=== PATIENT | male | born 1950 | race Caucasian/White ===

== ENCOUNTER 2024-06-10 07:24 | Day surgery (SDC) | payer OTHER, SELFPAY ==
[2024-05-27 13:33] VITALS: BMI 50.8
[2024-05-27 14:01] LABS: % Basophils 0.4 % (0-2); % Immature Granulocytes 0.7 % (0-0.5); % Lymphocytes 16.8 % (20.5-51.1); % Monocytes 5.1 % (1.7-9.3); Absolute Eosinophils 0.1 10^3/uL (0-0.7); Absolute Immature Granulocytes 0.1 10^3/uL (0-0.05); Absolute Lymphocytes 1.2 10^3/uL (1.2-3.4); Absolute Monocytes 0.4 10^3/uL (0.1-0.6); Absolute Neutrophils 5.5 10^3/uL (1.4-6.5); Hematocrit 34.9 % (39.0-52.0); Hemoglobin 11.2 g/dL (13.0-18.0); Mean Corp Hgb Conc. 32.1 g/dL (33.0-37.0); Mean Corpuscular Hgb 26.4 pg (27.0-31.0); Mean Corpuscular Volume 82.3 fL (80.0-94.0); Nucleated Red Blood Cells % 0 % (-); Red Blood Cell Count 4.24 10^6/uL (4.70-6.10); Red Cell Dist. Width 17.8 % (11.5-14.5); White Blood Cell Count 7.2 10^3/uL (4.8-10.8)
[2024-05-27 14:11] LABS: Mean Platelet Volume 10.2 fL (7.4-10.4); Platelet Count 75 10^3/uL (130-400)
[2024-05-27 14:14] LABS: ALT (SGPT) 37 U/L (0-50); AST (SGOT) 29 U/L (17-59); Albumin 4.1 g/dl (3.5-5.0); Alkaline Phosphatase 115 U/L (38-126); Blood Urea Nitrogen 19 mg/dl (9-20); Calcium 10.1 mg/dl (8.4-10.2); Carbon Dioxide 27 mmol/L (22-30); Chloride 100 mmol/L (98-107); Estimated Creatinine Clearance 115 ml/min; Glucose 162 mg/dl (70-99); Potassium 4.3 mmol/L (3.5-5.1); Sodium 136 mmol/L (135-145); Total Bilirubin 1.1 mg/dl (0.2-1.3); Total Protein 7.2 g/dl (6.3-8.2); eGFR > 60.00
[2024-05-28 13:19] LABS: Iron 86 ug/dl (49-181)
[2024-05-28 13:28] LABS: Percent Saturation 29 % (20-50); Total Iron Binding Capacity 289 ug/dl (261-462)
[2024-05-28 17:27] LABS: Vitamin B12 869 pg/ml (239-931)
[2024-06-10] VITALS (9 sets, daily range): BP systolic 94–115; BP diastolic 48–83; BMI 50.2
--- NOTE | 2024-06-10 07:49 | CONSULT.STRU ---
Consultation
-
Date/Time Consultation Requested: 06/10/2024
Date/Time Consultation Performed: 06/10/2024
Requesting Provider: Bruce Nicholson MD
Performing Provider: FELICIANO Goncalves
Reason for Consultation: /TAVR
Patient History
Physicians
Family Physician: Marcos Rene MD
Outpatient Telephone Directory Deliverer: Lui Claros MD
Primary Telephone Directory Deliverer: Lui Claros MD
History of Present Illness
Mr. Bright is a 74 yo obese male with a past medical history significant for , ERENDIRA, HTN, hyperlipidemia, GERD, CAD (BRANDIN), and, diastolic/systolic dysfunction. His most recent echocardiogram from 05/12/2024 is notable for EF 60-65%, aortic valve
P/M 72/51, ANTIONE 0.9, no AI, MV looks grossly normal, TV looks grossly normal. From a symptomatology standpoint, patient describes HOLLIS with the least amount of exertion, extreme fatigue sleeping most of the day, and occasional anterior substernal
chest pain without associated symptoms or radiation stating it using goes away after one hour. Discussed the pathophysiology and treatment options of aortic stenosis including sAVR and TAVR. Explained the evaluation process comprising of repeat lab
work, CT scan, dental clearance, CT surgical consult, and a heart team discussion. Prescriptions, appointments, TAVR booklet and contact information given to patient. Allowed for and answered questions from patient and son at bedside.
Past Medical History
Past Medical History: BPH, CAD, GERD, HTN, ERENDIRA, Valvular Disease (aortic stenosis) and Other (hyperlipidemia)
Past Surgical History
Past Surgical History: Orthopedic (ACL replacement) and Tonsilectomy
Dental History
[facility]--Patient will need to make an appointment
Family History
Mother: N/A
Father: N/A
Social History
Tobacco: Non-Smoker
Allergies
Allergy/AdvReac Type Severity Reaction Status Date / Time
No Known Allergies Allergy Verified 05/25/24 14:27
Home Medications
�Medication �Instructions �Recorded �Confirmed �Type
aspirin 81 mg capsule 81 mg PO DAILY 02/05/22 05/25/24 History
atorvastatin 80 mg tablet 80 mg PO HS 02/05/22 05/25/24 History
furosemide 80 mg tablet 80 mg PO BID #180 tabs 02/05/22 05/25/24 Rx
tamsulosin 0.4 mg capsule 0.8 mg PO HS 02/05/22 05/25/24 History
atenolol 50 mg tablet 50 mg PO DAILY 05/25/24 05/25/24 History
multivitamin 1 tab PO DAILY 05/25/24 05/25/24 History
spironolactone 25 mg tablet 12.5 mg PO DAILY 05/25/24 05/25/24 History
STS%
STS %: 4.82
Review of Systems
-
History Source: Patient
General: Reports Fatigue
Respiratory: Reports SOB and HOLLIS
Cardiac: Reports Chest Pain
Physical Exam
Vital Signs
Actual Weight 165 kg 05/27/24 13:33
Body Mass Index (BMI) 50.8 05/27/24 13:33
Labs
05/27/24 13:49
05/27/24 13:49
Diagnostic Studies
Procedure Type:�Isolated AVR
Perioperative Outcome Estimate %
Operative Mortality 4.82%
Morbidity & Mortality 16.7%
Stroke 0.831%
Renal Failure 4.91%
Reoperation 5.62%
Prolonged Ventilation 8.94%
Deep Sternal Wound Infection 0.184%
Long Hospital Stay (>14 days) 9.48%
Short Hospital Stay (<6 days)* 29%
ECHOCARDIOGRAM 05/12/2024
CONCLUSIONS
1. Very technically difficult study.
2. Overall normal LV function. EF 60 to 65%.
2. Normal RV function
3. Severe aortic stenosis. Peak gradient 72 mmHg. Mean gradient 51 mmHg.
Calculated valve area 0.9 cm2.
Exam
General: No Apparent Distress and Other (obese)
HEENT: Normocephalic
Neck: Trachea Midline
Respiratory: Clear
Cardiac: Murmur (III/ GUILLERMO)
GI: Soft and Non Tender
Rectal: Deferred by Provider
Skin: Warm
Neuro: Awake, Alert and Oriented
Assessment / Plan
-
Aortic stenosis
Continue TAVR evaluation
Continue aspirin
Trend creatinine (RX given)
TAVR CT scan (07/01)
CT surgical consult (07/06 MPT)
Frailty testing and KCCQ12 at consult
Dental clearance
Heart team discussion
Data Reviewed
-
Greenskeeper Supervisor: Discussed with Physician
Echo: Report Reviewed by me and Discussed with Physician
Labs: Labs Reviewed by me
Old Records: Reviewed
Total Time Spent with Patient (in minutes): 45
[2024-06-10 08:48] LABS: Glucose - Point of Care 157 mg/dl (70-99)
--- NOTE | 2024-06-10 15:45 | ITS.CL.PN ---
Chisel Mortiser Operator - Procedure Note
Procedure
Procedure Note:
CARDIAC CATHETERIZATION REPORT
Date of Procedure: 06/10/2024
Referring: Dr. Lui Claros MD
Indication: severe aortic stenosis
PROCEDURE(S)
1. right heart catheterization
2. left heart catheterization
3. coronary angiography
ACCESS
1. 6F left radial artery (closure: radial band)
2. 5F left antecubital vein (closure: manual hemostasis)
CATHETERS
1. 5F [place]
2. 6F AL1 (best for RCA)
3. 6F JL4
MODERATE SEDATION: 45 minutes of moderate sedation was utilized. An independent medical recruiter was present to assist with and help manage the patient's level of consciousness and physiologic status.
ULTRASOUND GUIDED VASCULAR ACCESS (left radial artery): Ultrasound was utilized for vascular access. The vessel was visualized under ultrasound and noted to be patent. An image of the vessel was stored permanently in the patient's medical record.
Under direct ultrasound guidance, vascular access was obtained using a modified Seldinger technique and a 6 [place] sheath was placed.
ULTRASOUND GUIDED VASCULAR ACCESS (left antecubital vein): Ultrasound was utilized for vascular access. The vessel was visualized under ultrasound and noted to be patent. An image of the vessel was stored permanently in the patient's medical record.
Under direct ultrasound guidance, vascular access was obtained using a modified Seldinger technique and a 5 [place] sheath was placed.
HEMODYNAMIC DATA
LV 173/16 (EDP 31) mmHg
AO 136/87 (mean 107) mmHg
RA 16 mmHg
RV 46/12 (EDP 19) mmHg
PA 43/23 (mean 33) mmHg
PCWP 24 mmHg
SaO2 98.3%
SvO2 57.4%
Hb 10.6 g/dL
CO/CI 5.75/2.12 L/min/m2
SVR 1265 dsc*-5
PVR 1.6 Wood units
Mean gradient (via simultaneous pressure measurement): 39.6 mmHg at HR 64, Area 0.99 cm2 (0.36 cm2 indexed to BSA), SVI 33.1 mL/m2
CORONARY ANGIOGRAPHY
Dominance: right
LM: large vessel with mild distal vessel tapering
LAD: large vessel giving rise to a moderate caliber diagonal branch. There is a focal 50% stenosis just before the diagonal takeoff and otherwise mild disease all grossly unchanged from 2021.
LCx: large vessel giving rise to a large OM1, moderate caliber OM2, and small OM3 before being totally occluded with the distal circumflex fed via robust R-L collaterals. There is a focal 50-60% stenosis of the OM1 that appears angiographically
unchanged from 202. There is otherwise diffuse mild disease in the OM1 and OM2.
RCA: moderate caliber vessel with a high anterior takeoff giving rise to a small RPDA, several small RPL branches, and suppling collaterals to the distal RCA including several small LPL branches. There is mild non-obstructive disease grossly
unchanged from 2021.
RADIATION: dose 1346 mGy; DAP 109 Gy*cm2; fluoroscopy time 18.6 min
CONCLUSIONS
1. elevated biventricular filling pressures, moderate post-capillary pulmonary hypertension, low cardiac index, and severe aortic stenosis
2. non-obstructive coronary artery disease in a right dominant system grossly unchanged from 2021
RECOMMENDATIONS
1. proceed with workup for TAVR
2. management of HFpEF
Copy to: Dr. Lui Claros MD (muffler tender); Marcos Rene DO (PCP)
Signed: Bruce Nicholson MD, PhD
== END 2024-06-10 13:45 | disposition home or self-care (01) ==
LOC: CATH 07:24
PROVIDERS: ATTENDING PHYSICIAN Student in an Organized Health Care Education/Training Program; FAMILY PHYSICIAN Family Medicine; OTHER PHYSICIAN Internal Medicine Cardiovascular Disease
DX: I35.0 Nonrheumatic aortic (valve) stenosis (principal); I25.10 Atherosclerotic heart disease of native coronary artery without angina pectoris; Z95.5 Presence of coronary angioplasty implant and graft; I11.0 Hypertensive heart disease with heart failure; I50.32 Chronic diastolic (congestive) heart failure; Z86.73 Personal history of transient ischemic attack (TIA), and cerebral infarction without residual deficits; G47.33 Obstructive sleep apnea (adult) (pediatric); D46.9 Myelodysplastic syndrome, unspecified; D69.6 Thrombocytopenia, unspecified; M19.90 Unspecified osteoarthritis, unspecified site; Z68.43 Body mass index [BMI] 50.0-59.9, adult; E78.49 Other hyperlipidemia; E66.01 Morbid (severe) obesity due to excess calories; N40.0 Benign prostatic hyperplasia without lower urinary tract symptoms; R26.2 Difficulty in walking, not elsewhere classified; Z79.82 Long term (current) use of aspirin; Z79.899 Other long term (current) drug therapy; I27.29 Other secondary pulmonary hypertension; K21.9 Gastro-esophageal reflux disease without esophagitis
CPT/HCPCS: 99152; 99153; 36415; 76937; 80053; 82607; 82728; 82962; 83540; 83550; 85025; 93005; 93460; C1769; C1894; Q9967

== ENCOUNTER → 2024-07-01 11:56 | Outpatient (REF) | payer OTHER, SELFPAY | LOC: RAD 11:56 | PROVIDERS: ATTENDING PHYSICIAN Nurse Practitioner Acute Care | DX: I35.0 Nonrheumatic aortic (valve) stenosis (principal) | CPT/HCPCS: 74174; 75572; Q9967 ==

== ENCOUNTER → 2024-07-14 13:18 | Outpatient (REF) | payer OTHER, SELFPAY | LOC: RAD 13:18 | PROVIDERS: ATTENDING PHYSICIAN Thoracic Surgery (Cardiothoracic Vascular Surgery); FAMILY PHYSICIAN Family Medicine | DX: I35.0 Nonrheumatic aortic (valve) stenosis (principal) | CPT/HCPCS: 75572; Q9967 ==

== ENCOUNTER 2024-08-12 05:12 | Inpatient (IN) | payer OTHER, SELFPAY ==
[2024-08-05 12:12] VITALS: BMI 49.8
[2024-08-05 12:59] LABS: Urine Albumin 1+ (Neg - Trace); Urine Bilirubin Negative (Negative); Urine Character Clear (Clear); Urine Color Yellow; Urine Glucose 2+ (Negative); Urine Ketone Negative (Negative); Urine Leukocyte 1+ (Negative); Urine Nitrite Negative (Negative); Urine Occult Blood 1+ (Negative); Urine Specific Gravity 1.025 (<1.030); Urine Urobilinogen 1+ (Neg - 1+)
[2024-08-05 13:03] LABS: INR 0.97; PT 13.2 Sec (11.4-14.6)
[2024-08-05 13:04] LABS: APTT 36.3 Sec (23.4-35.0)
[2024-08-05 13:08] LABS: ALT (SGPT) 33 U/L (0-50); AST (SGOT) 27 U/L (17-59); Albumin 4.1 g/dl (3.5-5.0); Alkaline Phosphatase 107 U/L (38-126); Blood Urea Nitrogen 16 mg/dl (9-20); Carbon Dioxide 26 mmol/L (22-30); Chloride 106 mmol/L (98-107); Direct Bilirubin 0.1 mg/dl (0.0-0.4); Estimated Creatinine Clearance 114 ml/min; Glucose 228 mg/dl (70-99); Potassium 3.8 mmol/L (3.5-5.1); Sodium 139 mmol/L (135-145); Total Bilirubin 0.9 mg/dl (0.2-1.3); Total Protein 6.6 g/dl (6.3-8.2); eGFR > 60.00
[2024-08-05 13:16] LABS: NT-proBNP 231 pg/ml
[2024-08-05 13:24] LABS: % Basophils 0.4 % (0-2); % Eosinophils 0.6 % (0-6); % Immature Granulocytes 0.6 % (0-0.5); % Lymphocytes 12.6 % (20.5-51.1); % Monocytes 3.9 % (1.7-9.3); % Neutrophils 81.9 % (42.2-75.2); Absolute Lymphocytes 0.9 10^3/uL (1.2-3.4); Absolute Monocytes 0.3 10^3/uL (0.1-0.6); Absolute Neutrophils 5.7 10^3/uL (1.4-6.5); Hemoglobin 10.4 g/dL (13.0-18.0); Mean Corp Hgb Conc. 31.5 g/dL (33.0-37.0); Mean Corpuscular Hgb 25.9 pg (27.0-31.0); Mean Corpuscular Volume 82.1 fL (80.0-94.0); Nucleated Red Blood Cells % 0 % (-); Red Blood Cell Count 4.02 10^6/uL (4.70-6.10); Red Cell Dist. Width 17.7 % (11.5-14.5); White Blood Cell Count 6.9 10^3/uL (4.8-10.8)
[2024-08-05 13:43] LABS: Urine Bacteria Few (Negative); Urine Mucus Few; Urine Red Blood Cell 0-2 /HPF (0-2); Urine Squamous Cell 0-2 /LPF (Few)
[2024-08-05 13:48] LABS: Platelet Count 59 10^3/uL (130-400)
[2024-08-05 13:49] LABS: Mean Platelet Volume 10.3 fL (7.4-10.4)
--- NOTE | 2024-08-05 13:52 | HPS.HSE ---
Family Physician
-
Family Physician: Marcos Rene
Chief Complaint
-
HOLLIS, severe
History of Present Illness
Pt is a 74y/oM with known severe and dyspnea on exertion schedule for transfemoral TAVR on 08/12/[address] Crocker and Bharat. Pt was seen in preadmission testing for updated history & physical evaluation. Pt reports unchanged symptomatology
related to his aortic stenosis with continued dyspnea on exertion. Pt does report hurting his back 2 weeks ago for which he took a medrol dose rosaline per his primary doctor. Pt reports no difficulty with lying flat, but would prefer to have a pillow
under his back during procedure and recovery to facilitate this if possible. He expressed significant concern about postoperative urinary retention which he experienced after a recent dental extraction & subsequent cardiac stent. Pt states he went
home & retained urine for which he required a mcclain for nearly 2 months.
Medical History
Past Medical History
Past Medical History: Reports Other
Additional Past Medical History:
hypertension
hyperlipidemia
BPH
obstructive sleep apnea with CPAP use at home
obesity
GERD
CAD s/p stents 2018 & 2021
severe aortic stenosis
chronic heart failure with preserved EF
diastolic dysfunction
erectile dysfunction
myelodysplastic syndrome
thrombocytopenia
urticaria
Past Surgical History: Reports Other
Additional Past Surgical History:
cardiac stents 2017 & 2021
L wrist surgery 12/2023 (no anesthetic complications)
remote ACL surgery
Social History
Unable to obtain full social history at this time due to: Other
Tobacco: Non-smoker
Alcohol: Other (rare)
Drug: None
Personal:
Family History
Family History: CAD
Allergies / Home Medications
Allergies reflects when Allergies were last updated in [email or web address].
Home Medications with original date entered in [email or web address]
Allergy/Medication List:
Allergies
Allergy/AdvReac Type Severity Reaction Status Date / Time
lisinopril Allergy Unknown mouth and Verified 08/02/24 14:35
throat
swelling
Review of Systems
-
History Source: Patient
A 12 point ROS was completed and negative except as noted: Yes
Constitutional: Reports No Symptoms
EENT: Reports No Symptoms
Respiratory: Reports Trouble Breathing and Other (dyspnea on exertion, stable)
Cardiac: Reports No Symptoms
Abdomen/GI: Reports No Symptoms
Musculoskeletal: Reports No Symptoms
Skin: Reports Rash (R medial thigh; few mildly raised wheals with scale (pt reports urticaria triggered by cold/stress))
Neurological: Reports No Symptoms
Endocrine: Reports No Symptoms
Hematologic/Lymphatic: Reports No Symptoms
Psych: Reports Anxiety
Physical Exam
Physical Exam
General: Well Developed, Well Nourished and No Apparent Distress
HEENT: NormoCephalic and Anicteric
Respiratory: Decreased Breath Sounds (mildly decreased bases)
Cardiac: S1/S2 and Murmur (+GUILLERMO 3/6)
GI: Soft and Non Tender
Rectal: Deferred by Provider
Genito-urinary: Deferred by me
Musculoskeletal: Edema, Left Lower Extremity (trace with mild rubor anterior galvan, no tenderness ) and Edema, Right Lower Extremity (trace)
Skin: Warm and Dry
Neuro: Nonfocal/grossly intact
Psych: Anxious
Laboratory Results
-
08/05/24 12:23
08/05/24 12:23
Laboratory Results
PT 13.2 Sec (11.4-14.6) 08/05/24 12:23
INR 0.97 08/05/24 12:23
APTT 36.3 Sec (23.4-35.0) H 08/05/24 12:23
Total Bilirubin 0.9 mg/dl (0.2-1.3) 08/05/24 12:23
AST 27 U/L (17-59) 08/05/24 12:23
ALT 33 U/L (0-50) 08/05/24 12:23
Alkaline Phosphatase 107 U/L (38-126) 08/05/24 12:23
Data Reviewed
-
Medical Tests (Nuc Med, Echo, EKG etc): Image Personally Visualized and interpreted
Lab Data: Labs Reviewed by me
Impression/Plan
-
IMPRESSION:
severe aortic stenosis
chronic heart failure with preserved EF
dyspnea on exertion
PLAN:
Proceed as planned for transfemoral TAVR on 08/12. Pt instructed to continue all home meds until day of surgery and take ASA 81mg on morning of procedure. To arrive to CVICU at 0530. HARLAN labs reviewed--chronically thrombocytopenic, but current
platelet count 59,000. Will plan for platelets on hold for patient on DOS. Urinalysis reveals poss UTI vs contamination, will follow up urine culture and treat if indicated.
--- NOTE | 2024-08-05 14:41 | CM ---
Met with Mr. Bright in [facility] He states prior to admission he resides alone in a two story home with eight steps to enter. He states he has eight steps to get to go down stairs to his den. He states prior to admission he ambulates independently
in the home and uses a single point cane in the community. He states he has a scooter that he uses for longer distances. He states he has a single point cane and scooter in the home. He states he has a prescription plan. The discharge plan is to
return home with a home visit by the Transitional Care Nurse when medically stable.
We reviewed pre-op and post-op routines. We reviewed the shower instructions. He has the soap, written instructions and the TAVR Educational Booklet. We reviewed restrictions including driving restrictions and lifting restrictions. We also
discussed a home visit by the Transitional Care Nurse. He is agreeable to a home visit. The plan is to for TAVR on July
[2024-08-06 08:47] LABS: Glycohemoglobin (HgbA1c) 6.4 % (4.0-5.6)
[2024-08-12] VITALS (20 sets, daily range): BP systolic 81–168; BP diastolic 53–98; BMI 49.7
[2024-08-12 05:17] LABS: Glucose - Point of Care 174 mg/dl (70-99)
--- NOTE | 2024-08-12 06:07 | W.CVOR.SURPR ---
CVOR Surgeon Immed Pre Op
-
I have examined this patient prior to performance of the scheduled procedure.
The patient's condition is unchanged from the time of the dictated/written History and
Physical and the patient is able to undergo the scheduled procedure.
TF TAVR, Full Rescue
--- NOTE | 2024-08-12 06:18 | PTCARENOTE ---
Pt admitted to room 2252 at around 0515 this morning, aaox3, denies pain or discomfort, son at bedside. Admission questions and assessment completed, medication verified. Confirmed with pt on aspirin taken this morning at 0405 am. NSR on the
monitor, HR 66. BP stable. blood sugar 174 this morning, pt NPO since 08/11. Hair clipped and CHG wipes done. Verified with pt on CHG wash done at home . IV #20 placed on L AC, ABO drawn and sent. Pt oriented to room and call light. POC on
going and in agreement.
[2024-08-12 08:37] LABS: ACT-LR - POC 321 Seconds (116-155)
[2024-08-12 08:56] LABS: ACT-LR - POC 210 Seconds (116-155)
--- NOTE | 2024-08-12 09:24 | W.PN.CT.SURG ---
CT Surgery Operative Note
-
OPERATIVE REPORT
Preoperative Diagnosis: Severe aortic valve stenosis, symptomatic
Postoperative Diagnosis: Same
Procedure(s) Performed: Right trans femoral TAVR with a 34 mm Medtronic Evolut FX plus device with pre-deployment valvuloplasty
Date of Procedure: 08/12/2024
Comorbidities:
1. Severe symptomatic aortic stenosis
2. Morbidly obese a BMI of 49.7
3. Hypertension
4. Hyperlipidemia
5. GERD
6. Acute on chronic systolic and diastolic dysfunction with severe volume overload with a LVEDP of 30
7. Multivessel coronary artery disease
8. myelodysplastic syndrome with thrombocytopenia
9. Obstructive sleep apnea
Cardiac Surgeon: Norman Crocker MD, MS
Pearl Hand: Baltazar Nicholson MD
Anesthesia: General anesthesia with endotracheal intubation
EBL: 100cc
Products: none
Implant: Medtronic Evolut 34 mm FX plus plus SN: [id number]
Indication(s) for Procedures: 74-year-old male with severe aortic stenosis. Symptomatic. CT-TAVR protocol revealed acceptable anatomy for a self-expanding TAVR valve. Given his body habitus, he is at risk for severe patient prosthesis mismatch and
so we opted to use a self-expanding valve.
Start time: 0803hrs
Deployment time: 0849hrs
End time: 0911hrs
Radiation Dose (mGy): 2934.42
DAP (cm2.Gy): 208.11
Fluoroscopy time (minutes): 18.5
Contrast volume (ml): 116
TAVR gradient (mmHg): 5mmHg
Heparin Dose: 29151+2000units
Protamine Dose: 50mg
Final Valve Positioninmm:1mm
Findings: Preoperative LVEF was 60% and was 60% following TAVR without inotropic support. Function was overall normal without regional wall motion abnormalities or dyskinesia. The aortic valve was well seated with only trace PVL. The patient did not
require pacing postoperative and was in sinus rhythm. There was successful placement of 34 mm Evolut FX+ TAVR valve without acute complications. Given his elevated gradients, we opted to perform a prevalve deployment balloon valvuloplasty using a
23 mm true balloon. This done under rapid pacing with good effect. Additionally we opted to use a 22 [place] dry seal [place] sheath for access to his right common femoral artery in order to avoid multiple exchanges of catheters given his body habitus
and risk for vascular injury. His LVEDP pre-TAVR was found to be well over 30 mmHg indicating significant volume overload requiring Lasix in the CVICU. This also indicates that he has acute on chronic congestive heart failure with significant
volume overload
Access:
1. Device -right common femoral artery, perclose x 2
2. Pigtail -left common femoral artery + 6Fr angioseal
3. Transvenous Pacer -left common femoral vein
Description of Procedure: The patient was taken to the label rewinder. Their identity and procedure to be performed were verified and they were positioned supine on the label rewinder table. Induction via conscious sedation with local analgesia. The patient was
then prepped and draped from chin to thigh in a sterile fashion. A preoperative time-out was performed with all members of the team present. Using fluoroscopy, bilateral femoral heads and their margins were identified. Arterial and venous access
were done with a micropuncture needle with Seldinger technique. Test pacing revealed capture with excellent threshold. Angiography confirmed proper puncture site and femoral artery integrity. Two Per-Close devices were used on the TAVR side. An
AL1 catheter was used to deliver a extrastiff wire and insertion of the working sheath, we then exchanged this extra-stiff wire for a Lunderquist wire in order to provide a proper rail for dilation and placement of a 22 [place] dry seal sheath.
An AL1 catheter with a straight stiff wire was used to access the LV. The AL catheter was then exchanged for a pigtail using a J-wire where an LVEDP was then measured. A Lunderquist wire was then reinserted. A 23 mm true balloon was then inserted
over top of the wire and under rapid pacing at 180 bpm we performed a balloon valvuloplasty. Once cessation of pacing stopped we had rapid return of vital signs. The valve was prepped and mounted on to the device carrier. An ACT of >250 was
achieved. We verified x 3 under fluoroscopy that the valve was mounted correctly with paddles in appropriate position. We than set our parameters to achieve a co-planar view with the pigtail positioned in the NCC. We advanced the device with it's
in-line sheath into the descending thoracic aorta and over the arch into the root and positioned across the aortic valve. Contrast fluoroscopy was used to visualize the prosthesis across the valve. We performed a quick pre-deployment time out. We
verified positioning based on the pigtail and gentle contrast puffs. The valve was slowly deployed to just before annular contact under pacing at 100 bpm. We paused here and verified positioning in our cusp overlap view. We then rotated BULGARIAN and
removed any parallax from the valve. Contrast was used to verify the LCC was appropriate in height. It was and so we slowly continued to deploy the valve until the crowns and paddles were free from the device. At this point the valve was functioning
and pacing was stopped. We slowly continued to deploy the valve until the crowns and paddles were free from the device. The deployment device was withdrawn into the descending thoracic aorta while maintaining wire access across the valve. A
transthoracic echocardiogram was performed . The pigtail was re-positioned at the level of the crown of the valve and angiography revealed excellent placement and seating of the valve at the annulus. The device was removed from the groin as we
cinched down the perclose devices while maintaining wire access now with a softer J-wire. There was acceptable hemostasis. The pigtail was repositioned into the descending/abdominal and runoff aortogram was performed. There was no significant
stenosis or dissection of the bilateral iliofemoral systems with excellent runoff to the SFAs. All wires were removed and perclose snugged and cut. There was acceptable hemostasis of bilateral groins.
All instrument, sponge, and needle counts were confirmed to be correct x 2 at the end of the operation. The patient was transferred to the cardiac intensive care unit in stable condition.
I, Dr. Norman Crocker, was present, scrubbed for, and performed all critical elements of this procedure.
Norman Crocker MD, MS
Cardiothoracic Surgeon
[facility] [address]
This operative dictation was created using the [employer] dictation system. Please excuse any grammatical, typographical, or 'sound alike' errors
[2024-08-12] MEDS: LEVOPHED 250 IV (10:05)
--- NOTE | 2024-08-12 11:13 | PTCARENOTE ---
Patient received from PACU. AO x 3, speech is clear, ANAYA, pupils equal/reactive. SB, HR 50, BP 111/73, pox 96% on room air, clearing throat, sore throat. B/L groin site CI, pedals with Doppler. Asking for Hemorid cream, will follow up. Son at
bedside, call islas in reach
--- NOTE | 2024-08-12 12:00 | ITS.CL.PN ---
[employer] Developer - Procedure Note
Procedure
Procedure Note:
TRANSCATHETER AORTIC VALVE REPLACEMENT REPORT
Date of Procedure: 08/12/2024
Referring: Dr. Lui Bradley MD
Indication: Symptomatic severe aortic stenosis
Operators: Bruce Nicholson MD, PhD (interventional cardiology); Dr. Norman Crocker MD (CT surgery)
Anesthesia: conscious sedation provided by the anesthesia staff
PROCEDURE: transfemoral, transcatheter aortic valve replacement with an Evolut Fx+ 34 mm valve
ACCESS:
1. 6F left femoral vein (closure: manual hemostasis) - Ultrasound was utilized for vascular access. The vessel was visualized under ultrasound and noted to be patent. An image of the vessel was stored permanently in the patient's medical record.
Under direct ultrasound guidance, vascular access was obtained using a modified Seldinger technique and a 6 [place] sheath was placed.
2. 6F left common femoral artery (closure: Angioseal) - Ultrasound was utilized for vascular access. The vessel was visualized under ultrasound and noted to be patent. An image of the vessel was stored permanently in the patient's medical record.
Under direct ultrasound guidance, vascular access was obtained using a modified Seldinger technique and a 6 [place] sheath was placed.
3. 22 F right common femoral artery (closure: Perclose x2) - Ultrasound was utilized for vascular access. The vessel was visualized under ultrasound and noted to be patent. An image of the vessel was stored permanently in the patient's medical
record. Under direct ultrasound guidance, vascular access was obtained using a modified Seldinger technique and a 8 [place] sheath was placed.
HEMODYNAMIC DATA
LV 131/21 (EDP 30) mmHg
PROCEDURE NARRATIVE:
The patient was prepped and draped in standard sterile fashion. Conscious sedation was provided by the anesthesia staff. 6F left femoral vein and left common femoral artery access was obtained with ultrasound guidance using micropuncture technique
with verification of appropriate arteriotomy location via hand injection angiography. A temporary venous pacing wire was advanced via the left femoral vein to the right ventricle under fluoroscopic guidance with appropriate capture verified. A 5F
pigtail catheter was advanced via the left common femoral artery and seated in the non-coronary cusp. Angiography was performed to verify the cusp overlap angle.
8F right common femoral artery access was obtained with ultrasound guidance using micropuncture technique with verification of appropriate arteriotomy location via hand injection angiography. The arteriotomy was preclosed with two Perclose sutures
followed by replacement of the 8F sheath. Using an AL1 catheter, a Lunderquist wire was placed in the descending thoracic aorta. After serial dilation a 22 [place] dry seal sheath was placed. Heparin 13,000 units was given. The AL1 catheter was
re-advanced through the sheath to the level of the ascending aorta. The Lunderquist wire was exchanged for a soft tipped straight wire which was used to cross the aortic valve and deposit the AL1 in the LV apex. A J-wire was used to exchange the AL1
for a pigtail catheter in the LV and LVEDP was measured. The Lunderquist wire was advanced through the pigtail catheter and seated in the LV apex. ACT was checked and confirmed to be >300 seconds. The valve was inspected under fluoroscopy to confirm
lack of infolding above the 4th node.
A 23 mm True valvuloplasty balloon was advanced over the Lunderquist wire and into the aortic annulus. Valvuloplasty was performed under rapid pacing with good balloon expansion. The valvuloplasty balloon was removed.
The in-line sheath was advanced over the Lunderquist wire into the descending aorta. The valve was then advanced over the aortic arch and into the left ventricle. In the cusp overlap view, the valve was slowly deployed to the point of flowering. The
patient was paced to adequately lower pulse pressure as the valve was deployed through the rumble strips to 80%. Injection demonstrated a non-coronary cusp implant depth of 3 mm. Angiography performed in an ENGLISH projection demonstrated left coronary
cusp implant depth of 1 mm. The decision was made to proceed with full deployment. The Lunderquist wire was partially withdrawn to lift the nose cone of the valve delivery device. In the ENGLISH view, the delivery handle was slowly rotated until both
paddles were released from the superior aspect of the valve. The delivery device was withdrawn to the descending aorta and re-assembled. The patient was resuscitated by anesthesia with recovery of adequate blood pressure. Telemetry demonstrating
sinus bradycardia. Aortography demonstrated good valve positioning, adequate coronary filling, and no aortic valve insufficiency. Echocardiography confirmed no aortic insufficiency. Mean valve gradient was 5 mmHg.
The valve deployment system and inline sheath were removed, and hemostasis obtained with the two Perclose sutures. Protamine 50 mg was given. Aortoiliac angiography demonstrated no evidence of iliofemoral dissection/perforation and good runoff below
the common femoral artery bilaterally. The pacemaker and the pigtail catheter were removed. The left femoral artery sheath was removed using a 6F Angioseal. The left femoral venous sheath was removed with manual pressure.
RADIATION: dose 2934 mGy; DAP 208 Gy*cm2; fluoroscopy time 18.5 min
CONCLUSIONS
1. successful placement of an Evolut Fx+ 34 mm transcatheter aortic valve via right transfemoral approach with no acute complications
2. acute on chronic systolic heart failure with elevated filling pressures (LVEDP = 30)
Copy to: Dr. Lui bradley MD (private equity associate); Dr. Marcos Rene DO (PCP)
Signed: Bruce Nicholson MD, PhD
--- NOTE | 2024-08-12 12:30 | CM ---
Chart reviewed. Patient is in the OR today. Patient is independent of ADLS, lives with alone, in a [address], [address], ambulates with a SPC and also has a scooter. Plan is for the patient to return home with CT Transitional RN. CM to follow
--- NOTE | 2024-08-12 13:28 | PTCARENOTE ---
B/L femoral sites CDI, dressings dry, pedals with Doppler. Uncomfortable in the bed, assisted to the chair and the bathroom. Denies lightheadedness HR 58, VSS, call islas in reach
[2024-08-12] MEDS: LASIX 40 MG IV (13:41)
[2024-08-12 13:57] LABS: Glucose - Point of Care 155 mg/dl (70-99)
[2024-08-12] MEDS: ANESTHETIC LOZENGE 1 LOZENGE PO (16:17)
[2024-08-12] MEDS: ANCEF 5 IV (16:17)
[2024-08-12 17:07] LABS: Glucose - Point of Care 196 mg/dl (70-99)
[2024-08-12] MEDS: LIPITOR 80 MG PO (18:45)
[2024-08-12] MEDS: FLOMAX 0.8 MG PO (18:45)
[2024-08-12] MEDS: MAALOX 30 ML PO (22:49)
--- NOTE | 2024-08-13 01:08 | PTCARENOTE ---
Rec'd pt. AAOx3, VSS, NSR on the monitor. B/L groin site dressings CDI without drainage or hematoma, peripheral circulation intact. No complaints of chest pain or shortness of breath. Sat out in chair all evening, very concerned with the prospect
of retaining urine post surgically (has happened before per pt.). Taken to the bathroom twice with assist x 1 and observed to urinate moderate amount both times with minimal difficulty (second time better than the first). Bladder scan PVR showing
50 ml. Pt. currently sleeping.
[2024-08-13 02:14] VITALS: BP 152/92
[2024-08-13 03:06] LABS: Hematocrit 31.5 % (39.0-52.0); Hemoglobin 10.1 g/dL (13.0-18.0); Mean Corp Hgb Conc. 32.1 g/dL (33.0-37.0); Mean Corpuscular Hgb 26.1 pg (27.0-31.0); Mean Corpuscular Volume 81.4 fL (80.0-94.0); Mean Platelet Volume 9.9 fL (7.4-10.4); Platelet Count 62 10^3/uL (130-400); Red Blood Cell Count 3.87 10^6/uL (4.70-6.10); Red Cell Dist. Width 18.5 % (11.5-14.5); White Blood Cell Count 7.5 10^3/uL (4.8-10.8)
[2024-08-13 03:17] LABS: Blood Urea Nitrogen 18 mg/dl (9-20); Carbon Dioxide 27 mmol/L (22-30); Chloride 104 mmol/L (98-107); Estimated Creatinine Clearance 93 ml/min; Glucose 139 mg/dl (70-99); Potassium 3.9 mmol/L (3.5-5.1); Sodium 139 mmol/L (135-145); eGFR > 60.00
[2024-08-13 05:15] LABS: Urine Albumin 1+ (Neg - Trace); Urine Bilirubin Negative (Negative); Urine Character Clear (Clear); Urine Color Yellow; Urine Glucose Negative (Negative); Urine Ketone Negative (Negative); Urine Leukocyte 1+ (Negative); Urine Nitrite Negative (Negative); Urine Occult Blood Negative (Negative); Urine Specific Gravity 1.025 (<1.030); Urine Urobilinogen Negative (Neg - 1+)
[2024-08-13 05:57] LABS: Urine Amorphous Seen; Urine Squamous Cell >30 /LPF (Few)
[2024-08-13 05:58] LABS: Urine White Cell 16-20 /HPF (0-5)
[2024-08-13 05:59] LABS: Urine Bacteria Moderate (Negative); Urine Red Blood Cell 0-2 /HPF (0-2)
[2024-08-13] MEDS: ASPIR LOW (ENTERIC COATED) 81 MG PO (07:56)
[2024-08-13] MEDS: LASIX 80 MG PO (07:56)
[2024-08-13] MEDS: TENORMIN 50 MG PO (07:56)
[2024-08-13] MEDS: ALDACTONE 12.5 MG PO (07:56)
[2024-08-13 08:00] VITALS: BMI 49.5
[2024-08-13 08:01] VITALS: BP 133/66
--- NOTE | 2024-08-13 08:43 | W.PN.CT ---
Today's Communication / Plan
-
-pod #1
-no issues overnight
-nsr 70s overnight. No quinten or pauses
-Echo today
-diuresed with iv Lasix 08/12 - continue
-possible d/c today
Assessment / Plan
-
- Severe aortic valve stenosis, symptomatic- s/p Right trans femoral TAVR with a 34 mm Medtronic Evolut FX plus device with pre-deployment valvuloplasty on 08/12/24, pod #1
- Acute on chronic diastolic CHF, LVEDP pre-TAVR was found to be well over 30 mmHg- diuresed with 40 iv Lasix
- Class 3 obesity a BMI of 49.7
- Hypertension
- Hyperlipidemia
- GERD
- Acute on chronic systolic and diastolic dysfunction with severe volume overload with a LVEDP of 30
- Multivessel coronary artery disease
- Myelodysplastic syndrome with thrombocytopenia
- Obstructive sleep apnea
- Hx of acute urinary retention after PCI and dental extraction, required Gutierrez x2 mos
- BPH
- ERENDIRA, on CPAP
- CAD, s/p stent 2017 &2021
Discussed patient care with: Nursing and Care Team
Subjective
-
Date of Service: August 13, 2024
Objective Data
-
Lab Results
08/13/24 02:35
08/13/24 02:35
PT 13.2 Sec (11.4-14.6) 08/05/24 12:23
INR 0.97 08/05/24 12:23
APTT 36.3 Sec (23.4-35.0) H 08/05/24 12:23
Vital Signs
Vital Signs
Temp Pulse Resp BP Pulse Ox
99 F 80 20 133/66 95
08/13/24 08:18 08/13/24 08:01 08/13/24 08:18 08/13/24 08:01 08/13/24 08:18
CT Intake/Output/Weight
08/12/24 08/13/24 08/13/24
18:59 06:59 18:59
Intake Total 2660 / 3140 480 / 3140
Balance 2660 / 3140 480 / 3140
SaO2: 95
Physical Exam
-
General: Awake and AOx3
Cardiovascular: Regular rate & rhythm, No Murmurs and No Rub
Respiratory: Decreased Breath Sounds
Incision: Other (groins are cdi, soft, nontender, no hematoma b/l)
Extremities: Edema +1
Abdomen: soft, nontender, nondistended, + bowel sounds
Data Reviewed
-
Lab Results: Results Reviewed
Medications: Active Meds Reviewed
Chest X-Ray: Report Reviewed and Image Reviewed
ECG: Report Reviewed and Image Reviewed
--- NOTE | 2024-08-13 10:03 | CARDSERVLU ---
Echocardiogram with Lumason completed after protocol screening completed. Allergies verified.
Patent IV site: ___left AC__
IV site flushed with 0.9% NaCl pre and post administration.
Diluted bolus method utilized to enhance visualization of ventricular lee.
Total volume given: ___3.0_ mL
Patient tolerated all procedures well without complications.
[2024-08-13] MEDS: FLEET PHOSPHATE ENEMA-ADULT 135 ML RECTAL (10:06)
--- NOTE | 2024-08-13 10:18 | W.PN.CD ---
Today's Communication / Plan
-
medically stable for discharge with standard post-TAVR follow up
Impression / Plan
-
Mr. Bright is a 74 year old man with history of CAD s/p prior PCI and severe symptomatic aortic stenosis now POD1 s/p transfemoral TAVR with 34 mm Medtronic Evolute Fx Plus.
s/p diuresis yesterday with 40 IV lasix for LVEDP 30 mmHg during case
did well overnight
Tele NSR
Exam with bilateral groins CDI
Labs stable, plt >50
TTE with no PVL, normal EF, mean gradient 6 mmHg
Ok for discharge today with standard post-cath follow up. TTE in 1 month. Follow up with prototype machinist Dr. Lui Claros.
Physical Exam
Vital Signs/Labs
Vital Signs
Temp Pulse Resp BP Pulse Ox
37.2 C 80 20 133/66 95
08/13/24 08:18 08/13/24 08:01 08/13/24 08:18 08/13/24 08:01 08/13/24 08:54
08/12/24 08/13/24 08/14/24
06:59 06:59 06:59
Actual Weight 161.6 kg
08/13/24 02:35
08/13/24 02:35
PT 13.2 Sec (11.4-14.6) 08/05/24 12:23
INR 0.97 08/05/24 12:23
APTT 36.3 Sec (23.4-35.0) H 08/05/24 12:23
08/05/24
12:23
[id number] Pept 231
Physical Exam
Constitutional: No acute distress
Cardiovascular: Rhythm & rate is regular
Respiratory: Respiratory effort normal
Neuro/Psych: AO x 3
Other: Cath Site (cdi)
Data Reviewed
-
Date of Service: August 13, 2024
Medical Decision Making: Reviewed Test Results
EKG: Tracing Personally Visualized and interpreted
Echo: Tracing Personally Visualized and interpreted
Labs: Labs Reviewed by me
--- NOTE | 2024-08-13 10:40 | W.DCSUMMARY ---
Discharge Summary
Discharge Data
Date of Admission: 08/12/24
Date of Discharge: 08/13/24
Total time spent discharging patient (in min): 45
-
Pending Results: No
Hospital Course
Primary care physician:
Dr. Marcos Rene, DO
Outpatient gas plant specialist:
Dr. Lui Claros
Inpatient consultants:
CBC
Procedures:
1. Right trans femoral TAVR with a 34 mm Medtronic Evolut FX plus device with pre-deployment valvuloplasty
Primary Diagnosis:
1. Severe aortic stenosis
Secondary Diagnoses:
1. constipation
2. Morbidly obese a BMI of 49.7
3. Hypertension
4. Hyperlipidemia
5. GERD
6. Acute on chronic systolic and diastolic dysfunction with severe volume overload with a LVEDP of 30
7. Multivessel coronary artery disease
8. myelodysplastic syndrome with thrombocytopenia
9. Obstructive sleep apnea
HPI:
74-year-old male with severe aortic stenosis presented electively on 08/12 for a transcatheter aortic valve replacement with Dr. Crocker.
Hospital course:
Patient was electively admitted on 08/12 for a transcatheter aortic valve replacement with Dr. Romero. There were no intra-op events and patient went to labor representative recovery. B/l groins remain stable. He was sent to IVU for the remainder of their
recovery. On 08/16, POD #1, B/L groins remained stable. Patient requested a fleet enema. Repeat TTE showed a well-seated TAVR with normal gradients (peak/mean 14/8 mmHg). He was deemed stable for discharge.
Home medication changes:
see below
Discharge Plan
-
Patient Disposition: Home (Routine Discharge)
Discharge Diagnosis/Procedures: TF-TAVR
Condition: Good
Diet: Low Cholesterol and 2 Gram Sodium
Activity: As tolerated and No strenuous activity
Driving Restrictions: No driving for 2 weeks
Bathing Restrictions: OK to Shower
Others Tests: 30 Day Follow Up Echocardiogram: 09/17/2024 at 12:40pm in Dr. Claros' office
Other Services: Cardiac Rehab
Wound Care: Please do not apply lotions, creams or powders to groin areas. Please monitor for increased pain, swelling, redness or drainage. Notify your doctor if any occur.
Specialty Instructions: Weigh Daily- Call MD for wt gain/loss 3 lbs overnight/5 lbs in 1 week
Activity Restrictions/Additional Instructions:
Please call [facility] for Cardiac Rehab [phone].
Referrals:
CT Transitional Care Nurse [Outside] (The Cardiothoracic Transitional Care Nurse will call you to set up a visit in 1-2 days.)
Marcos Rene, [Family Provider] -
Berna Marcelo CRNP [Specified Professional Personl] - 09/08/24 3:00 pm
Prescriptions:
New
acetaminophen 325 mg Tablet
650 mg PO Q4HPRN PRN (Reason: PAREDES, mild pain, or fever >101F) Qty: 0 0RF
Continued
atorvastatin 80 mg Tablet
80 mg PO HS
tamsulosin 0.4 mg Capsule
0.8 mg PO HS
aspirin 81 mg Capsule
81 mg PO DAILY
multivitamin Tablet
1 tab PO DAILY
spironolactone 25 mg Tablet
12.5 mg PO DAILY
atenolol 50 mg Tablet
50 mg PO DAILY
furosemide 80 mg tablet
80 mg PO DAILY
Care Plan Goals
Care Plan Goals:
Problem: Readiness for enhanced knowledge related to diagnosis and treatment plan
Goal: Understand your diagnosis and treatment plan needs, including medications if applicable.
Instructions: Know your diagnosis, underlying causes and treatment plan options, including medications if applicable. Consult with your health care team to learn about your diagnosis and treatment plan, including medications if applicable.
Discharge Date and Time
Print Language: WALLISIAN
--- NOTE | 2024-08-13 11:26 | CM ---
Chart reviewed. Patient is independent of ADLS, lives alone in a 2 [facility], [address] [facility], ambulates with a SPC and scooter. Plan is for the patient to return home with CT Transitional RN. CM to follow
[2024-08-13 12:01] VITALS: BP 151/84
[2024-08-13 15:18] VITALS: BP 157/87
--- NOTE | 2024-08-13 15:36 | PN.CDI ---
CDI
- -
CDI:
Physician Documentation Request
Admit Date: 08/12/24 05:12
Dear Doctor/ CVPA,
Please review the following and provide your response in the progress notes.
Clinical Indicators:
Pt admitted with Severe s/p TAVR
Documented per Scanned H&P, ' His most recent Echocardiogram from 05/12/24 is notable for EF 60-65%...'
Cardiac cath/TAVR report, ' acute on chronic systolic heart failure with elevated filling pressures (LVEDP = 30)..'
CT op note surgery/ notes ,' Acute on chronic systolic and diastolic dysfunction with severe volume overload with a LVEDP of 30...'
CT surgery note 08/13, ' diuresed with iv Lasix 08/12 - continue... Acute on chronic systolic and diastolic dysfunction with severe volume overload with a LVEDP of 30..'
ECHO 08/13, ' LVEF 60-65%....No significant change compared to prior echocardiogram on 08/12/2024...'
Per MAR did get IV Lasix 40 mg x 2 doses
Please provide further specificity regarding the most likely type and acuity of CHF you are evaluating, treating or monitoring.
Acute on Chronic Diastolic CHF
Acute on Chronic Systolic CHF
Other ( please specify)
Use of terms such as suspected, likely, concern for, or probable (associated with a specific diagnosis that is being evaluated, monitored, or treated as if it exists) are acceptable and can be coded in the inpatient setting, when documented at the
time of discharge.
Thank you,
Lucila Giordano RN
CDI Specialist
[facility] [employer]
Please use your independent medical judgment in providing your response.
--- NOTE | 2024-08-13 17:15 | PTCARENOTE ---
Pt received this am with no c/o of any pain or sob. Assisted oob to the BR and the chair. Tolerated oob for 1 -2 hours. Pt requesting a fleets enema for constipation. Fleets enema given with good results. Bilateral groin site dressings dry and
intact. Sites soft and non tender. Pt discharged to home with his son. Discharge instructions given and reviewed with good understanding and all questions answered.
== END 2024-08-13 17:17 | disposition home or self-care (01) | DRG 266 ==
LOC: IVU 05:12
PROVIDERS: Physician Assistant Medical; ADMITTING PHYSICIAN Thoracic Surgery (Cardiothoracic Vascular Surgery); CONSULT PHYSICIAN Student in an Organized Health Care Education/Training Program; FAMILY PHYSICIAN Family Medicine; OTHER PHYSICIAN Internal Medicine Cardiovascular Disease
PROC: 02RF38Z Replacement of Aortic Valve with Zooplastic Tissue, Percutaneous Approach (ICD-10-PCS; 2024-08-12)
DX: I35.0 Nonrheumatic aortic (valve) stenosis (principal); I50.43 Acute on chronic combined systolic (congestive) and diastolic (congestive) heart failure; Z68.42 Body mass index [BMI] 45.0-49.9, adult; I11.0 Hypertensive heart disease with heart failure; E78.5 Hyperlipidemia, unspecified; G47.33 Obstructive sleep apnea (adult) (pediatric); N40.0 Benign prostatic hyperplasia without lower urinary tract symptoms; K21.9 Gastro-esophageal reflux disease without esophagitis; I25.10 Atherosclerotic heart disease of native coronary artery without angina pectoris; D46.9 Myelodysplastic syndrome, unspecified; N52.9 Male erectile dysfunction, unspecified; K59.00 Constipation, unspecified; E66.813 Obesity, class 3; Z79.899 Other long term (current) drug therapy; Z82.49 Family history of ischemic heart disease and other diseases of the circulatory system; Z95.5 Presence of coronary angioplasty implant and graft
CPT/HCPCS: 93308; 33361; 36415; 71045; 71046; 80048; 80053; 81003; 81015; 82248; 82962; 83036; 83880; 85025; 85027; 85347; 85610; 85730; 86850; 86900; 86901; 86920; 87070; 87086; 93005; 93321; 93325; C1760; C1769; C1894; Q9950; Q9967